=== PATIENT | female | born 1945 | race Caucasian/White ===

== ENCOUNTER 2021-12-01 13:34 | Outpatient (CLI) | payer MEDICARE, SELFPAY ==
[2021-12-01 13:47] VITALS: BMI 25.0
[2021-12-01 14:18] LABS: Albumin Level 4.6 g/dl (3.5-5.0)
[2021-12-01 14:21] LABS: Calcium 9.7 mg/dl (8.4-10.2)
[2021-12-01 14:42] LABS: Creatinine Clearance Estimated 47 mL/min (50-200); Estimated Glomerular Filt Rate 70 ml/min (>60); GFR (African American) 84 ML/MIN (>60)
[2021-12-01 15:10] VITALS: BP 121/84; PULSE 50; RESP 16; O2SAT 100
[2021-12-01 15:25] VITALS: BP 141/85; PULSE 72; RESP 16
== END 2021-12-01 15:35 | disposition home or self-care (01) ==
PROVIDERS: PCP Family Medicine; Visit Provider Family Medicine
DX: M85.89 Other specified disorders of bone density and structure, multiple sites (principal)
CPT/HCPCS: 82040; 82310; 82565; 96374; J3489